=== PATIENT | male | born 1945 | race Caucasian/White ===

== ENCOUNTER 2019-01-20 01:32 | Outpatient (CLI) | payer MEDICARE, SELFPAY ==
[2019-01-20 11:45] LABS: HCT 50.8 % (40.0-50.0); HGB 16.8 g/dL (13.5-17.5); Mean Corp. HGB Concentration 33.1 g/dL (32.0-36.0); Mean Corpuscular Hemoglobin 30.3 pg (27.0-33.0); Mean Corpuscular Volume 91.5 fL (80-95); Platelet Count 268 x1000/uL (130-400); RBC 5.55 m/cumm (4.50-6.00); RBC Distribution Width 12.9 % (11.8-14.1); White Blood Cell Count 6.67 k/cumm (4.4-10.8)
[2019-01-20 12:01] LABS: ALT 43 U/L (16-63); AST 22 U/L (15-37); Albumin 3.9 g/dL (3.4-5.0); Alkaline Phosphatase 69 U/L (46-116); Anion Gap 6.1 mmol/L (3-11); BUN 20 mg/dL (7-18); Bilirubin, Total 0.7 mg/dL (0.2-1.0); CO2 29.9 mmol/L (21.0-32.0); CREATININE 1.05 mg/dL (0.70-1.30); Calcium 8.7 mg/dL (8.5-10.1); Calculated LDL 141 mg/dL; Chloride 106 mmol/L (98-107); Cholesterol 207 mg/dL (<200); Glucose 106 mg/dL (74-106); HDL Cholesterol 52 mg/dL (40-60); Potassium 4.8 mmol/L (3.5-5.1); Sodium 142 mmol/L (136-145); Total Protein 6.8 g/dL (6.4-8.2); Triglyceride 71 mg/dL (<150)
== END 2019-01-20 01:52 ==
PROVIDERS: PCP Emergency Medicine; Visit Provider Family Medicine
DX: E78.5 Hyperlipidemia, unspecified (principal)
CPT/HCPCS: 36415; 80053; 80061; 85027

== ENCOUNTER 2019-01-21 03:32 | Outpatient (CLI) | payer MEDICARE, BC, SELFPAY | END 2019-01-21 03:52 | PROVIDERS: PCP Emergency Medicine; Visit Provider Family Medicine | DX: I48.91 Unspecified atrial fibrillation (principal); I47.1 Supraventricular tachycardia; I49.1 Atrial premature depolarization | CPT/HCPCS: 93225 ==

== ENCOUNTER 2019-01-25 08:05 | Outpatient (CLI) | payer MEDICARE, BC, SELFPAY ==
--- NOTE | 2019-01-25 10:58 | W.HOLTRPT ---
Date of service: 01/25/19 Time of Service: 10:59 Holter Monitor Report Holter Monitor Note: Is a 48-hour Holter monitor to evaluate for atrial fibrillation. ?The patient was in normal sinus rhythm for 96% of the recording time. ?The patient had 4 episodes of atrial fibrillation with the longest lasting almost 3 hours. The maximum rate during this recording time was 211 bpm. ?Patient had 10 episodes of supraventricular tachycardia other than atrial fibrillation with the longest lasting 99 beats ?The patient had occasional (1.3%) premature atrial contractions and 3 runs of multiple PACs in a row. ?The patient no episodes of ventricular tachycardia. The patient had occasional (2.6%) single ventricular ectopic beats. ?The patient had no pauses greater than 3 seconds and no episodes of high degree heart block.
== END 2019-01-25 08:25 ==
PROVIDERS: PCP Emergency Medicine; Visit Provider Emergency Medicine
DX: I48.91 Unspecified atrial fibrillation (principal); I47.1 Supraventricular tachycardia; I49.1 Atrial premature depolarization
CPT/HCPCS: 93227; 93226

== ENCOUNTER 2019-02-18 00:34 | Outpatient (CLI) | payer MEDICARE, BC, SELFPAY ==
--- NOTE | 2019-02-18 13:50 | DI.US_ITS ---
APPROVED REPORT EXAM: Comprehensive 2D, Doppler, and color-flow Echocardiogram Patient Location: Out-Patient Senior Clinical Project Manager: Lala Morrissey RDCS (AE) Rhythm: Afib A flutter Indications: Afib i48.0 Conclusion Left Ventricle : The left ventricle is normal size. Top normal wall thickness with sigmoid septum. no obstructions noted at rest or with provocation. The left ventricular systolic function is normal. Th e left ventricular ejection fraction is within the normal range. There is normal LV segmental wall mo tion. LVEF is estimated to be 55-60%. Diastolic function is indeterminate. Right Ventricle : Right ventricle is normal in size. The right ventricular systolic function is low n ormal. Atria : Left atrium is top normal in size. The right atrium size is normal. Aortic Valve : The Aortic valve is mildly Aortic valve is trileaflet.sclerotic. No aortic regurgitat ion is present. There is no aortic valvular stenosis. Mitral Valve : Mitral valve leaflets are mildly thickened. Mild mitral regurgitation. No evidence of mitral valve stenosis. Tricuspid Valve : The tricuspid valve leaflets are mildly thickened, but open well. Mild tricuspid re gurgitation. Great Vessels : The ascending aorta is mildly dilated (3.6cm) IVC is normal in size and collapses >50 % with inspiration. Estimated RVSP is 19-22 mmHg. Echocardiographic images from 2013 study are unavailable for comparison. Wall motion Left Ventricle The left ventricle is normal size. The left ventricular systolic function is normal. The left ventric ular ejection fraction is within the normal range. Top normal wall thickness with sigmoid septum. no obstructions noted at rest or with provocation. There is normal LV segmental wall motion. Diastolic f unction is indeterminate. LVEF is estimated to be 55-60%. Right Ventricle Right ventricle is normal in size. The right ventricular systolic function is low normal. Atria Left atrium is top normal in size. The right atrium size is normal. Aortic Valve The Aortic valve is mildly Aortic valve is trileaflet.sclerotic. There is no aortic valvular stenosis . No aortic regurgitation is present. Mitral Valve Mitral valve leaflets are mildly thickened. No evidence of mitral valve stenosis. Mild mitral regurgi tation. Tricuspid Valve The tricuspid valve leaflets are mildly thickened, but open well. Mild tricuspid regurgitation. Pulmonic Valve Pulmonic valve is not well visualized. Mild pulmonic regurgitation. Great Vessels The aortic root is normal in size. The ascending aorta is mildly dilated (3.6cm) IVC is normal in siz e and collapses >50% with inspiration. Estimated RVSP is 19-22 mmHg. Pericardium There is no pericardial effusion. 2D Dimensions IVSd 1.10 cm M: 0.6-1.2 LV EDV A2C 46.30 mL PWd 1.10 cm M: 0.6 - 1.2 LV EDV A4C 50.50 mL LVDd 4.35 cm M: 4.2 - 5.8 LA Volume Index A2C 25.32 mL/m2 LVDs 3.10 cm M: 2.5 - 4.0 LA Volume Index A4C 34.04 mL/m2 Aortic Root 3.20 cm M: 3.1 - 3.7 LA Volume Index Biplane 29.95 mL/m2 RVID Base (AP4) 4.00 cm (M/F) 2.5-4.1 LA Area A4C 20.51 cm2 RA Area A4C 17.24 cm2 LA Area A2C 18.04 cm2 LVOT 2.00 cm (M/F) 1.5-2.5 EF AP4 55.25 % Ascending Aorta 3.64 cm M: 2.6 - 3.4 EF AP2 58.53 % LVEF (Teich) 55.62 % EF BP 57.82 % LVEF (Stanley's) 57.82 % M: 52 - 72 LV Volume 36.81 mL M: 62 - 150 LV Volume Index 19.07 mL/m2 M: 34 - 74 FS 28.75 % LV Diastology MED E' 0.08 (>0.07 m/s) LV E/e MED 11.65 (<14) LAT E' 0.11 (>0.1 m/s) LV E/e LAT 7.90 (<14) Aortic Valve LVOT Area 3.22 cm2 LVOT Vmax 0.80 m/s LVOT Mean Haseeb. 0.61 m/s LVOT Peak Gr. 2.7 mmHg LVOT Mean Gr. 1.6 mmHg AoV Area/ BSA (Vmax) 1.21 cm2/m2 LVOT VTI 0.10 m AoV Vmax 1.13 (0.5-1.3 m/s) KELLI Mean Haseeb. Index 1.25 cm2/m2 AoV Mean Haseeb. 0.80 m/s AoV Peak Grad 5.0 mmHg AoV Mean Grad 2.8 (<5 mmHg) AoV VTI 0.19 (0.18-0.25 m) VTI Ratio 0.76 AoV Area VTI 2.45 (2.5-4.5 cm2) AoV Area/ BSA (VTI) 1.26 cm/m2 Mitral Valve MV E Max Haseeb. 0.89 (0.4-1.3 m/s) MVA VTI 5.74 (4.0-6.0 cm2) Pulmonary Valve RVOT Peak Gr. 1.07 mmHg RVOT Peak Haseeb. 0.52 m/s RVOT Mean Gr. 0.75 mmHg RVOT VTI 0.05 m Tricuspid Valve TR P. Velocity 2.18 m/s TV Regurg Vmax 2.18 m/s RAP Estimate 3.00 mmHg RVSP 22.00 mmHg TR P. Gradient 19.05 mmHg
== END 2019-02-18 00:54 ==
PROVIDERS: PCP Family Medicine; Visit Provider Family Medicine
DX: I48.0 Paroxysmal atrial fibrillation (principal); I47.1 Supraventricular tachycardia; I34.8 Other nonrheumatic mitral valve disorders; E78.5 Hyperlipidemia, unspecified
CPT/HCPCS: 93306

== ENCOUNTER 2019-03-01 08:10 | Outpatient (CLI) | payer MEDICARE, BC, SELFPAY | END 2019-03-01 08:30 | PROVIDERS: PCP Family Medicine; Visit Provider Internal Medicine Cardiovascular Disease | DX: I48.91 Unspecified atrial fibrillation (principal); I49.1 Atrial premature depolarization; I49.3 Ventricular premature depolarization | CPT/HCPCS: 99204; 93005; 93010 ==

== ENCOUNTER → 2019-10-25 09:55 | Outpatient (BNVA) | payer MEDICARE, BC, SELFPAY | PROVIDERS: PCP Family Medicine; Referring Provider Family Medicine; Visit Provider Internal Medicine Cardiovascular Disease | DX: I48.0 Paroxysmal atrial fibrillation (principal); I47.1 Supraventricular tachycardia | CPT/HCPCS: 99214 ==

== ENCOUNTER → 2019-11-25 11:16 | Outpatient (BNVA) | payer MEDICARE, BC, SELFPAY | PROVIDERS: PCP Family Medicine; Referring Provider Family Medicine; Visit Provider Internal Medicine Cardiovascular Disease | DX: I47.1 Supraventricular tachycardia (principal); I48.0 Paroxysmal atrial fibrillation | CPT/HCPCS: 99214; 99442 ==

== ENCOUNTER → 2020-02-21 09:46 | Outpatient (BNVA) | payer MEDICARE, BC, SELFPAY | PROVIDERS: PCP Family Medicine; Referring Provider Family Medicine; Visit Provider Internal Medicine Cardiovascular Disease | DX: I47.1 Supraventricular tachycardia (principal); I48.91 Unspecified atrial fibrillation; I48.0 Paroxysmal atrial fibrillation | CPT/HCPCS: 99214; 99442 ==

== ENCOUNTER 2020-07-12 08:59 | Outpatient (CLI) | payer MEDICARE, BC, SELFPAY ==
[2020-07-12 13:04] LABS: ALT 42 U/L (16-63); AST 19 U/L (15-37); Alkaline Phosphatase 68 U/L (46-116); Anion Gap 4.4 mmol/L (3-11); BUN 21 mg/dL (7-18); Bilirubin, Total 0.7 mg/dL (0.2-1.0); CO2 31.6 mmol/L (21.0-32.0); Calcium 8.7 mg/dL (8.5-10.1); Calculated LDL 152 mg/dL (<100); Chloride 106 mmol/L (98-107); Cholesterol 225 mg/dL (<200); Glucose 100 mg/dL (74-106); HDL Cholesterol 57 mg/dL (40-60); Potassium 4.5 mmol/L (3.5-5.1); Sodium 142 mmol/L (136-145); Total Protein 6.9 g/dL (6.4-8.2); Triglyceride 83 mg/dL (<150)
== END 2020-07-12 09:00 | disposition home or self-care (01) ==
LOC: LOS 09:05
PROVIDERS: PCP Family Medicine; Visit Provider Nurse Practitioner Family
DX: E78.5 Hyperlipidemia, unspecified (principal); I48.91 Unspecified atrial fibrillation
CPT/HCPCS: 36415; 80053; 80061

== ENCOUNTER → 2020-08-28 09:35 | Outpatient (BNVA) | payer MEDICARE, BC, SELFPAY | PROVIDERS: PCP Nurse Practitioner Family; Referring Provider Family Medicine; Visit Provider Internal Medicine Cardiovascular Disease | DX: I47.1 Supraventricular tachycardia (principal); I48.0 Paroxysmal atrial fibrillation; Z79.01 Long term (current) use of anticoagulants | CPT/HCPCS: 99214; 99213 ==

== ENCOUNTER → 2021-09-28 09:01 | Outpatient (BNVA) | payer MEDICARE, SELFPAY | PROVIDERS: PCP Nurse Practitioner Family; Referring Provider Nurse Practitioner Family; Visit Provider Internal Medicine Cardiovascular Disease | DX: I47.1 Supraventricular tachycardia (principal); I48.11 Longstanding persistent atrial fibrillation; R06.09 Other forms of dyspnea; G47.9 Sleep disorder, unspecified | CPT/HCPCS: 93005; 99213 ==

== ENCOUNTER 2021-09-28 09:04 | Outpatient (CLI) | payer MEDICARE, SELFPAY ==
--- NOTE | 2021-09-28 09:00 | RT.EKG_ITS ---
APPROVED REPORT Exam: Resting ECG Reason for Exam: Post Cardioversion Patient Location: O HR:88 bpm ECG Measurements Heart Rate 88 AXIS [place] [id number] P [id number] QRSd 86 QRS 112 QT 355 T 17 QTc 430 Conclusion Atrial fibrillation...V-rate 66-103, irreg A-activity Ventricular premature complex...V complex w/ short R-R interval Borderline low voltage, extremity leads...all extremity leads <0.6mV Early R wave transition
== END 2021-09-28 09:05 | disposition home or self-care (01) ==
LOC: DI.CARD 09:05
PROVIDERS: PCP Nurse Practitioner Family; Visit Provider Internal Medicine Cardiovascular Disease
DX: I47.1 Supraventricular tachycardia (principal); I48.91 Unspecified atrial fibrillation; R94.31 Abnormal electrocardiogram [ECG] [EKG]
CPT/HCPCS: 93010

== ENCOUNTER → 2021-10-04 01:41 | Outpatient (CLI) | payer MEDICARE, SELFPAY ==
--- NOTE | 2021-10-04 07:15 | DI.NM_ITS ---
APPROVED REPORT Exam: Exercise Treadmill Patient Location: Out-Patient Room/Bed: Stress Nurse: Darcy Walker RN Ordering Provider:EDUARDO SANDOVAL, Contact Number: [phone] BMI: 26.14 Baseline Rhythm: Atrial Fibrillation Indications: Dyspnea on exertion. Medical History Medical History: RYAN. AFIB. SVT. Sleep disorder. HLD. Functional memory problem. Cardiac Medications: Apixaban. Diltiazem. Magnesium Citrate. Fluticasone propionate Allergies: No known drug allergies Cardiac Risk Factors: Family hx. HLD. Previous Cardiac Procedures: None Pretest Chest Pain Characteristics: None Exercise History: Indeterminate Physical Disabilities: None Lung Sounds: Clear to auscultation Heart Sounds: Irregular Stress Test Details Test: Exercise stress testing was performed using a Albret protocol. Nuclear Acquisition: Rest Tc-99m/Stress Tc-99m 1 day Rest Isotope: Tc-99m Sestamibi. Dose: 10.7 Date: 10/04/2021 Injection Time: 0915 Stress Isotope: Tc-99m Sestamibi. Dose: 30.6 Date: 10/04/2021 Injection Time: 1115 HR Resting HR Supine: 79 bpm Max Heart Rate (APMHR): 143.382504 bpm Resting HR Standin bpm Target HR (85% APMHR): 121.150800 bpm Max HR Achieved: 152 bpm % of APMHR: 106.29 Recovery HR: 89 bpm HR response to stress: Accelerated HR response to stress Comment: Last dose Diltiazem taken on 10/03/21 at 0700 BP Resting BP Supine: 142/98 mmHg Resting BP Standin/82 mmHg Max BP: 160/102 mmHg Recovery BP: 160/102 mmHg BP response to stress: Normal blood pressure response to stress. ECG Resting ECG: Atrial Fibrillation Ectopy: None Stress ECG: Atrial Fibrillation ST Change: No significant ST segment changes noted Arrhythmia: None Recovery ECG: Atrial Fibrillation Recovery ST Change: No significant ST segment changes noted Clinical Reason for Termination: Target HR Achieved Stress Symptoms: General Fatigue Exercise duration: 5 min00 sec Highest Stage Reached: Stage 2: 2.5 mph at 12% grade. Exercise capacity: 7.02 METs Angina Score: None Rate Pressure Product: [id number] Stress ECG Conclusion 1. The resting electrocardiogram showed atrial fibrillation, vertical axis, incomplete right bundle b ranch block 2. The patient exercised on Albert protocol and completed a workload of 7.02 METS 3. Peak heart rate achieved was greater than 100% of predicted for age 4. The electrocardiographic portion of the chest showed no evidence of myocardial ischemia 5. See MPI report Stress Test Summary STAGE Time (mins) Speed (mph) Grade (%) HR BP SpO2 SYMPTOMS METS Supine 79 142/98 Standing 88 132/82 1 3 1.7 10 119 148/70 4.5 1 min recovery 111 148/78 3 min recovery 95 158/92 6 min recovery 89 160/102 MPI Conclusion Normal myocardial perfusion without evidence of ischemia or prior infarction Normal wall motion, calculated EF is 43% Radiologist Interpretation Radiologist agrees with Bobbin Loose End Finder's Interpretation. Radiologist Interpretation by: Stacey Ocasio MD Interpretation Date/Time: 10/04/2021 16:52:20
== END ==
PROVIDERS: PCP Nurse Practitioner Family; Visit Provider Internal Medicine Cardiovascular Disease
DX: I48.11 Longstanding persistent atrial fibrillation (principal); I45.10 Unspecified right bundle-branch block; R06.09 Other forms of dyspnea
CPT/HCPCS: 78452; 93016; 93018; 93017

== ENCOUNTER 2022-07-26 01:19 | Outpatient (CLI) | payer MEDICARE, SELFPAY ==
[2022-07-26 12:30] LABS: Abs Immature Grans 0.02 10^3/uL (0.0-0.06); Absolute Basophil Count 0.04 10^3/uL (0.0-0.2); Absolute Eosinophil Count 0.24 10^3/uL (0.0-0.7); Absolute Lymphocyte Count 1.37 10^3/uL (1.2-3.4); Absolute Monocyte Count 0.48 10^3/uL (0.1-0.8); Absolute Neutrophil Count 2.91 10^3/uL (1.2-6.7); Basophils % 0.8; Eosinophils % 4.7; HCT 47.8 % (40.0-50.0); HGB 15.6 g/dL (13.5-17.5); Immature Grans % 0.4; Lymphocytes % 27.1; MCH 30.3 pg (27.0-33.0); MCHC 32.6 % (32.0-36.0); MCV 93 fL (80-95); Monocytes % 9.5; Neutrophils % 57.5; Platelet Count 241 10^3/uL (130-400); RBC 5.15 10^6/uL (4.36-5.78); RDW 12.4 % (11.8-14.1); RDW-SD 42.6 fL; WBC 5.06 10^3/uL (4.4-10.8)
[2022-07-26 12:40] LABS: Hemoglobin A1C 5.8 % (<5.7)
[2022-07-26 12:48] LABS: ALT 37 U/L (16-63); AST 21 U/L (15-37); Albumin 3.9 g/dL (3.4-5.0); Alkaline Phosphatase 64 U/L (46-116); Anion Gap 5.1 mmol/L (3-11); BUN 24 mg/dL (7-18); Bilirubin, Total 0.8 mg/dL (0.2-1.0); CO2 28.9 mmol/L (21.0-32.0); CREATININE 1.1 mg/dL (0.70-1.30); Calcium 8.6 mg/dL (8.5-10.1); Calculated LDL 146 mg/dL (<100); Chloride 106 mmol/L (98-107); Cholesterol 219 mg/dL (<200); Estimated GFR 68.71 (mL/min/1.73m2); Glucose 103 mg/dL (74-106); HDL Cholesterol 65 mg/dL (40-60); Potassium 4.6 mmol/L (3.5-5.1); Sodium 140 mmol/L (136-145); TSH (W/Ref FT4) 1.64 uIU/mL (0.36-3.74); Total Protein 7.2 g/dL (6.4-8.2); Triglyceride 44 mg/dL (<150)
[2022-07-29 08:56] LABS: PSA, Screening 1.3 ng/mL (<=6.5)
== END 2022-07-26 01:20 | disposition home or self-care (01) ==
LOC: LOS 01:20
PROVIDERS: PCP Nurse Practitioner Family; Visit Provider Nurse Practitioner Family
DX: N40.0 Benign prostatic hyperplasia without lower urinary tract symptoms (principal); I48.91 Unspecified atrial fibrillation; E78.2 Mixed hyperlipidemia; R73.01 Impaired fasting glucose
CPT/HCPCS: 36415; 80053; 80061; 84153; 83036; 84443; 85025

== ENCOUNTER → 2022-09-27 08:59 | Outpatient (BNVA) | payer MEDICARE, SELFPAY | PROVIDERS: PCP Nurse Practitioner Family; Visit Provider Internal Medicine Cardiovascular Disease | DX: Z79.01 Long term (current) use of anticoagulants (principal); I48.11 Longstanding persistent atrial fibrillation; G47.9 Sleep disorder, unspecified | CPT/HCPCS: 99213 ==

== ENCOUNTER 2022-12-18 11:30 | Outpatient (REF) | payer MEDICARE, SELFPAY ==
[2022-12-19 17:24] LABS: Campylobacter PCR Negative (Negative); Salmonella PCR Negative (Negative); Shiga Toxin PCR Negative (Negative); Shigella/Enteroinvasive Ecoli Negative (Negative)
== END 2022-12-18 11:31 | disposition home or self-care (01) ==
LOC: LBN 11:30
PROVIDERS: PCP Nurse Practitioner Family; Visit Provider Physician Assistant
DX: R19.7 Diarrhea, unspecified (principal)
CPT/HCPCS: 87505; 87177

== ENCOUNTER → 2023-09-26 08:58 | Outpatient (BNVA) | payer MEDICARE, SELFPAY | PROVIDERS: PCP Nurse Practitioner Family; Referring Provider Nurse Practitioner Family; Visit Provider Internal Medicine Cardiovascular Disease | DX: I48.11 Longstanding persistent atrial fibrillation (principal) | CPT/HCPCS: 99213 ==

== ENCOUNTER 2024-12-02 00:32 | Outpatient (CLI) | payer MEDICARE, SELFPAY ==
[2024-12-02 14:12] LABS: Anion Gap 8.0 mmol/L (3-11); BUN 22 mg/dL (7-18); CO2 30.0 mmol/L (21.0-32.0); Calcium 8.5 mg/dL (8.5-10.1); Calculated LDL 140 mg/dL (<100); Chloride 104 mmol/L (98-107); Cholesterol 207 mg/dL (<200); Estimated GFR 76.08 (mL/min/1.73m2); Glucose 104 mg/dL (74-106); HDL Cholesterol 56 mg/dL (>or=40); Potassium 4.2 mmol/L (3.5-5.1); Sodium 142 mmol/L (136-145); Triglyceride 57 mg/dL (<150)
[2024-12-02 22:10] LABS: PSA, Screening 1.8 ng/mL (<=6.5)
== END 2024-12-02 00:33 | disposition home or self-care (01) ==
LOC: LOS 00:32
PROVIDERS: PCP Nurse Practitioner Family; Visit Provider Nurse Practitioner Family
DX: Z13.6 Encounter for screening for cardiovascular disorders (principal); Z12.5 Encounter for screening for malignant neoplasm of prostate; Z13.1 Encounter for screening for diabetes mellitus
CPT/HCPCS: 36415; 80048; 80061; 84153